=== PATIENT | female | born 1950 | race Caucasian/White ===

== ENCOUNTER 2020-06-03 09:53 | Day surgery (SDC) | payer MEDICARE ==
[~2020-06-03] VITALS: Ht 167.6 cm; Wt 88.3 kg
[2020-06-03] VITALS (11 sets, daily range): BP systolic 118–169; BP diastolic 24–99; PULSE 62–78; TEMP 98.2
[~2020-06-03 09:53] MED LIST: CALCIUM 500 + D1 TA1 PO; CELEBREX200 MG PO; CENTRUM SILVER1 TA1 PO; FERRATE324 MG PO; FOLIC ACID 40400 MCG PO; FOSAMAX PLUS D1 TAB PO; GLUCOSAMINE PO; NEXIUM40 MG PO; PROPOXYPHENE1 UDTAB PO; VITAMIN C BUFF500 MG PO; VITAMIN D1000 IU PO
[2020-06-03 10:39] LABS: HEMATOCRIT 45.3 % (37.0-47.0); HEMOGLOBIN 15.3 g/dl (12.5-16.0); MEAN CELL VOLUME 90 fl (80.0-100.0); MEAN CORPUSCULAR HEMOGLOBIN 31 pg (27.0-31.0); MEAN CORPUSCULAR HGB CONC 34 g/dl (33.0-37.0); MEAN PLATELET VOLUME 11.1 fl (7.4-10.4); PLATELET COUNT 169 K/mm3 (130-400); RED BLOOD COUNT 5.01 M/mm3 (4.10-5.30); REDCELL DISTRIBUTION WIDTH-CV 13.9 % (11.5-14.5)
[2020-06-03 10:46] LABS: PROTHROMBIN TIME 11.2 SECONDS (9.7-12.8)
[2020-06-03 10:49] LABS: PARTIAL THROMBOPLASTIN TIME 31.4 SECONDS (26.0-37.0)
[2020-06-03] MEDS ORDERED: PROTONIX 40MG T40 MG PO (10:51)
[2020-06-03] MEDS ORDERED: FOLIC ACID 40400 MCG PO (10:52)
[2020-06-03] MEDS ORDERED: MASON NATURAL2000 IU PO (10:52)
[2020-06-03 10:53] LABS: CALCIUM 9.5 mg/dL (8.4-10.2); CREATININE, serum 0.62 (0.52-1.25); POTASSIUM 3.6 mmol/L (3.4-5.0)
[2020-06-03] MEDS ORDERED: VITAMIN C500 MG PO (10:53)
[2020-06-03] MEDS ORDERED: IRON TABLETS325 MG PO (10:53)
--- NOTE | 2020-06-03 14:54 | NUR ---
SEE MEREGE FOR ALL MEDICATION ADMIN. TIMES, INTRA AND POST SEDATION ASSESSMENT
--- NOTE | 2020-06-03 16:00 | NUR ---
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 Small hematoma noted proximal to TR band. Defined border palpable, and edges marked. Mirella Underground Foreman RN states area has been stable with no increase in size over last 15-20 mins. Pt educated to rest arm as much as possible, and to notify staff with any concerns. She expresses understanding. Call light in reach.
--- NOTE | 2020-06-03 17:00 | NUR ---
Hematoma to rt forearm remains stable with no increase in size. Pt resting comfortably, denies needs at this time.
--- NOTE | 2020-06-03 17:00 | NUR ---
Report from cachorro Retana.
--- NOTE | 2020-06-03 18:57 | NUR ---
Discharge instructions given to pt.pt verbalizes understanding.INT removed,catheter tip intact.Pt escorted out via wheelchair by this nurse.
== END 2020-06-03 18:58 | disposition home or self-care (01) ==
LOC: COL.CAR 09:53
PROVIDERS: Internal Medicine Interventional Cardiology
DX: I25.10 Atherosclerotic heart disease of native coronary artery without angina pectoris (principal); R94.39 Abnormal result of other cardiovascular function study; I77.810 Thoracic aortic ectasia; I87.2 Venous insufficiency (chronic) (peripheral); M79.605 Pain in left leg; M79.604 Pain in right leg; I77.819 Aortic ectasia, unspecified site
CPT/HCPCS: J1644; J2250; J3010